=== PATIENT | female | born 1980 | race Caucasian/White ===

== ENCOUNTER 2017-08-16 12:27 | Emergency (ER) | payer BC | END 2017-08-16 13:30 | disposition home or self-care (01) | LOC: E/R 13:30 | DX: S80.861A Insect bite (nonvenomous), right lower leg, initial encounter (principal); S80.262A Insect bite (nonvenomous), left knee, initial encounter; W57.XXXA Bitten or stung by nonvenomous insect and other nonvenomous arthropods, initial encounter; Y92.9 Unspecified place or not applicable | CPT/HCPCS: 99283 ==